=== PATIENT | female | born 1945 | race Caucasian/White ===

== ENCOUNTER 2019-09-15 08:18 | Inpatient (IN) ==
[2019-09-14 14:41] LABS: Basophils # (auto) 0.03 K/uL (0-0.2); Basophils % (auto) 0.4 %; Eosinophils # (auto) 0.07 K/uL (0-0.5); Eosinophils % (auto) 0.9 %; Hematocrit (blood only) 39.2 % (37-47); Hemoglobin 12.9 g/dL (12.0-16.0); Immature Granulocytes # (auto) 0.01 K/uL (0.00-0.02); Immature Granulocytes % (auto) 0.1 %; Mean Corpuscular Hemoglobin 30.5 pg (25-34); Mean Corpuscular Hgb Conc 32.9 g/dL (32-36); Mean Corpuscular Volume 92.7 fL (80-100); Monocytes # (auto) 0.64 K/uL (0.11-0.59); Monocytes % (auto) 8.7 %; Neutrophils # (auto) 4.94 K/uL (1.4-6.5); Neutrophils % (auto) 66.9 %; Platelet Count 225 K/uL (130-400); RDW Coefficient of Variation 14.9 % (11.5-14.5); RDW Standard Deviation 50.7 fL (36.4-46.3); Red Blood Count 4.23 M/uL (4.2-5.4); White Blood Count 7.39 K/uL (4.8-10.8)
[2019-09-14 14:42] LABS: BUN Creatinine Ratio 11.2 (10-20); Blood Urea Nitrogen 14 mg/dl (7-18); Carbon Dioxide 30 mmol/L (21-32); Chloride 104 mmol/L (98-107); Est GFR (African American) 51.4; Est GFR (Non-African American) 44.4; Glucose 112 mg/dl (70-99); Potassium 4.1 mmol/L (3.5-5.1); Sodium 137 mmol/L (136-145)
--- NOTE | 2019-09-14 14:58 | Anesthesiology Consultation ---
Date of Service September 14, 2019 Assessment & Plan (1) Encounter for pre-operative examination: Chart Review Chart Review: Acceptable Risk for Surgery (pending review of confirmed EKG by anesthesia DOS) and Patient NOT seen in Pre Admission Testing EKG pending confirmed report. Check BSG AM DOS Pt with history of a fib- med list only has ASA listed re: AC. Patient with active C. diff- surgeon aware Pulm note 08/20/19= F/u on COPD, history of lung cancer, and new RLL lung nodule. RLL nodule has PET activity is thus concerning for lung cancer. Referred for CT guided needle biopsy- biopsy shows some atypical cells but no definite malignancy. Possibility of sampling error is high and given PET positivity in nodule in active smoker with previous lung cancer history, pulm remains concerned about malignancy. Referred to thoracic surgery fo consideration of limited resection based on lung function. History Surgery Operation Date: 09/15/19 10:30 Proposed Procedures p Navigational Bronchoscopy with Fiducial Markers - Gennaro Tsai MD, FACS s Video Assisted Thoracoscopy with Right Lower Lobe Wedge Resection, Possible Right Lower Lobectomy with Mediastinal Lymphadenectomy - Gennaro Tsai MD, FACS Height/Weight Height: 5 ft 1 in Weight: 57.606 kg Allergies Allergy/AdvReac Type Severity Reaction Status Date / Time buspirone [From BuSpar] Allergy Redness of Verified 09/11/19 11:18 Skin tramadol [From Ultram] Allergy Diarrhea Verified 09/11/19 11:18 atorvastatin [From Lipitor] AdvReac Unknown Verified 09/11/19 11:18 Medications Home Medications Medication Instructions Recorded Confirmed Last Taken albuterol sulfate 90 mcg/actuation 2 puffs INH Q6H PRN 09/09/19 09/11/19 Unknown aerosol inhaler ascorbate calcium (vitamin C) 500 500 mg PO PM 09/09/19 09/11/19 Unknown mg tablet aspirin 81 mg chewable tablet 81 mg PO QAM 09/09/19 09/11/19 Unknown carvedilol 6.25 mg tablet 6.25 mg PO BID 09/09/19 09/11/19 Unknown cranberry 500 mg capsule 500 mg PO BID 09/09/19 09/11/19 Unknown cyclobenzaprine 10 mg tablet 10 mg PO HS 09/09/19 09/11/19 Unknown donepezil 10 mg tablet 10 mg PO QAM 09/09/19 09/11/19 Unknown ferrous sulfate 325 mg (65 mg 325 mg PO PM 09/09/19 09/11/19 Unknown iron) tablet fluticasone furoate 100 1 puffs INH DAILY PRN 09/09/19 09/11/19 Unknown mcg-vilanterol 25 mcg/dose inhalation powder gabapentin 600 mg tablet 600 mg PO TID 09/09/19 09/11/19 Unknown hydrochlorothiazide 12.5 mg tablet 12.5 mg PO QAM 09/09/19 09/11/19 Unknown ipratropium 0.5 mg-albuterol 3 mg 3 ml INH Q6H PRN 09/09/19 09/11/19 Unknown (2.5 mg base)/3 mL nebulization soln lactobacillus combination no.9 4 4,000 mmu cells PO BID 09/09/19 09/11/19 Unknown billion cell capsule lisinopril 5 mg tablet 5 mg PO BID 09/09/19 09/11/19 Unknown melatonin 5 mg capsule 10 mg PO HS cap 09/09/19 09/11/19 Unknown metformin 500 mg tablet 500 mg PO BID 09/09/19 09/11/19 Unknown mirtazapine 15 mg tablet 15 mg PO PM 09/09/19 09/11/19 Unknown nitroglycerin 0.4 mg sublingual 0.4 mg SL Q5M PRN 09/09/19 09/11/19 Unknown tablet ondansetron 4 mg disintegrating 4 mg PO BID 09/09/19 09/11/19 Unknown tablet pantoprazole 40 mg tablet,delayed 40 mg PO QAM 09/09/19 09/11/19 Unknown release rosuvastatin 10 mg tablet 10 mg PO PM 09/09/19 09/11/19 Unknown sucralfate 1 gram tablet 1 gm PO BID 09/09/19 09/11/19 Unknown vitamin B complex 1 tab PO QAM 09/09/19 09/11/19 Unknown fidaxomicin [Dificid] 200 mg PO Q12H 09/11/19 09/11/19 Unknown Past Medical History Medical History Anemia Asthma rare res. inh use Atrial fibrillation DX APR 2019 > [facility] > NO CARDIOVERSIONS/PACER> CONTROLLED WITH MEDS Barretts esophagus CAD (coronary artery disease) Cervical cancer 1969 Chronic obstructive pulmonary disease can't remember last exac Clostridium difficile infection HAS CURRENTLY> PER PATIENT, GOING TO [facility] NOVEMBER 24 FOR FECAL TRANSPLANT > PER PATIENT, DR. TSAI IS AWARE Diabetes Diaphragmatic hernia ESBL E. coli carrier Esophageal dilatation GERD (gastroesophageal reflux disease) Heart attack 2006 > "HEART MADE ITS OWN BYPASS" (DR. ESPINAL) NO PROCEDURES FOR THIS Hx of sepsis X2 > 06/22/16 AND 03/13/18> [facility] Hyperlipidemia Hypertension IBS (irritable bowel syndrome) Lung cancer 2016 WITH GI[facility] REMOVAL> NO CHEMO Nodule of right lung Non-alcoholic fatty liver disease Osteoarthritis Peptic ulcer disease PVD (peripheral vascular disease) stent to LLE Scoliosis Past Family History Family History Brother Diabetes Hypertension Mother Cancer Breast cancer Past Surgical History Surgical History H/O vascular surgery 3 STENTS LEFT LEG 2002 @ [facility] 2 STENTS RIGHT LEG 2004 @ [facility] H/O: hysterectomy History of adenoidectomy History of colonoscopy History of lung surgery left upper lobe 2016 ([facility] lobectomy per records) History of tonsillectomy History of tooth extraction S/P cholecystectomy Social History Smoking Status: Current every day smoker tobacco type: cigarettes Smoking cigarettes per day: 1 PPD Do You Dip or Chew Tobacco: No Hx Alcohol Use: No Hx Substance Use: No substance use type: does not use Testing Laboratory Results Laboratory Tests 09/14/19 09/14/19 13:15 13:15 WBC 7.39 Hgb 12.9 Hct 39.2 Plt Count 225 Sodium 137 Potassium 4.1 Chloride 104 Carbon Dioxide 30 BUN 14 Creatinine 1.21 H Glucose 112 H Electrocardiogram Date: 09/14/19 Findings: + NSR @ (90) unconfirmed Chest X-Ray Date: 08/13/19 Chest x-ray frontal view= no pneumothorax is seen. Heart size and pulmonary vasculature are normal. No effusion consolidation is seen. Echocardiogram Date: 10/15/18 EF: 55 to 60% LV Function: normal Other Findings: + LVH (Mild/concentric) Valvular Disease: + no significant valvular disease Inferior and anterior wall hypokinesis. Stress Test Date: 02/19/19 Type: nuclear (Lexiscan) No significant ST segment changes during stress. No arrhythmias during stress. SPECT images demonstrate normal perfusion during stress. SPECT images demonstrate normal homogeneous tracer distribution throughout the myocardium. Left ventricular chamber dimensions are normal. Systolic function greater than 50% and calculated at 65 to 70%. Pharmacologic stress nuclear study is normal. Normal SPECT perfusion images. No significant ischemia is detected. No evidence of infarct. Recommendations: Recommend medical treatment. Other Testing Chest CT 09/14/19= Increase in size in the 1.8 x 1.4 cm cavitary spiculated nodule within the right lower lobe. This is highly suspicious for a primary bronchogenic malignancy.A few subcentimeter groundglass pulmonary nodules seen within the right upper and lower lobes remain stable. Emphysema. Prior left upper lobectomy. No pneumothorax. No pleural effusions. PFT 07/23/19= Mild obstructive ventilatory impairment. No significant response to bronchodilator. Normal total lung capacity. Moderately impaired diffusing capacity. (FEV1 pre 1.39 liters; post 1.31 liters)
[~2019-09-15 08:18] MED LIST: CEFAZOLIN 1000MG 1,000 MG/7.5 ML SYR IV SCH; LR 15ML/HR IV SCH
--- NOTE | 2019-09-15 10:25 | History & Physical Bridge Note ---
Date of Service September 15, 2019 History & Physical Bridge Note I have examined the patient, reviewed the History & Physical and in the interval since the performance of the History & Physical I have noted the following changes of clinical significance: no changes noted
[2019-09-15] MEDS ORDERED: BUPIVACAINE 0.5 % 5 MG/1 ML MPF 30ML VIAL ONE (10:34)
[2019-09-15] MEDS ORDERED: BUPIVACAINE LIPOSOME 1.3% 266 MG/20 ML VIAL ONE (10:35)
[2019-09-15] MEDS ORDERED: SODIUM CHLORIDE 0.9% PF 50 ML VIAL ONE (10:35)
[2019-09-15] MEDS ORDERED: ePHEDrine sulfate 50 MG/ML AMP IV PRN (10:36)
[2019-09-15] MEDS ORDERED: ATROPINE SULFATE 0.1 MG/ML 10ML SYR IV PRN (10:36)
[2019-09-15] MEDS ORDERED: PROMETHAZINE HCL 12.5 MG in SODIUM CHLORIDE 0.9% 50 ML IV PRN (10:36)
[2019-09-15] MEDS ORDERED: ONDANSETRON INJ 2 MG/ML 2 ML VIAL IV PRN ×2 (10:36→17:27)
[2019-09-15] MEDS ORDERED: HYDROmorphone INJ 2 MG/ML SYR/VIAL IV PRN (10:36)
[2019-09-15] MEDS ORDERED: fentaNYL citrate 100 MCG/2 ML VIAL IV PRN (10:36)
[2019-09-15] MEDS ORDERED: METOCLOPRAMIDE HCL INJ 5 MG/ML 2 ML VIAL IV PRN (10:36)
[2019-09-15] MEDS ORDERED: PROPOFOL IV EMULSION 10 MG/ML 20 ML VIAL IV ONE (10:45)
[2019-09-15] MEDS ORDERED: LIDOCAINE HCL 2% 2 ML VIAL/AMP(20MG/ML) INFIL ONE (10:45)
[2019-09-15] MEDS ORDERED: ROCURONIUM BROMIDE 10 MG/ML 5 ML VIAL ONE ×6 (10:45→12:26)
[2019-09-15] MEDS ORDERED: MIDAZOLAM HCL 1 MG/ML 2ML VIAL ONE (10:45)
[2019-09-15] MEDS ORDERED: GLYCOPYRROLATE 0.2 MG/ML VIAL ONE (10:45)
[2019-09-15] MEDS ORDERED: fentaNYL citrate 100 MCG/2 ML VIAL ONE ×3 (10:45→15:38)
[2019-09-15] MEDS ORDERED: METHYLENE BLUE 0.5% 10 ML VIAL ONE (10:49)
[2019-09-15] MEDS ORDERED: PHENYLEPHRINE 100MCG/ML 5ML SYR ONE (12:26)
[2019-09-15] MEDS ORDERED: ePHEDrine sulfate 50 MG/ML SYR ONE (12:27)
[2019-09-15] MEDS ORDERED: PHENYLEPHRINE HCL 10 MG/ML VIAL ONE (12:28)
--- NOTE | 2019-09-15 12:58 | Fluoroscopy Report ---
FL chest 1V frontal CLINICAL HISTORY: JSOE EDUARDO BRONCH COMPARISON STUDY: None FLUOROSCOPY TIME: 59 seconds NUMBER OF FLUOROSCOPIC IMAGES: 1 FINDINGS: Image intensifier support for navigational bronchoscopy IMPRESSION: Image intensifier support for navigational bronchoscopy ACT 112: Negative or not required by law. The above report was generated using voice recognition software. It may contain grammatical, syntax or spelling errors. Electronically signed by: Tristen Monk M.D. 09/15/2019 12:57 PM
[2019-09-15] MEDS ORDERED: METOCLOPRAMIDE HCL INJ 5 MG/ML 2 ML VIAL IV ONE (14:15)
--- NOTE | 2019-09-15 14:54 | XRay Report ---
XR chest 1V portable HISTORY: right lung wedge resection COMPARISON: None. FINDINGS: Right-sided chest tube terminates within the right upper lung zone. There is a tiny right a pical pneumothorax with a pleural gap of 4 mm. Trace bilateral pleural effusions. Right basilar densi ties are noted. The heart is normal in size. Scoliosis is present. Mild emphysema. IMPRESSION: Postoperative changes within the right hemithorax. There is a tiny right apical pneumothorax. The rig ht chest tube terminates in the right upper lung zone. ACT 112: Negative or not required by law. Electronically signed by: Marcial Almeida M.D. 09/15/2019 2:52 PM
[2019-09-15 15:22] LABS: HCO3 ABG 28 mmol/L (19-24)
[2019-09-15 15:26] LABS: Allen Test Pos (Pos)
[2019-09-15 15:28] LABS: Base Excess ABG -2.2 mEq/L (-9-1.8); Oxygen Saturation ABG 99.2 % (90-95); PCO2 ABG 77 mmHg (35-46); PO2 ABG 185 mmHg (80-95)
[2019-09-15 15:31] LABS: pH ABG 7.18 (7.35-7.45)
[2019-09-15] MEDS ORDERED: ACETAMINOPHEN 1000 MG/100 ML IV IV ONE ×2 (15:54→15:57)
[2019-09-15 15:57] LABS: Base Excess ABG -2.6 mEq/L (-9-1.8); HCO3 ABG 26 mmol/L (19-24); Oxygen Saturation ABG 96.6 % (90-95); PCO2 ABG 61 mmHg (35-46); PO2 ABG 99 mmHg (80-95); pH ABG 7.24 (7.35-7.45)
[2019-09-15 15:58] LABS: Allen Test Pos (Pos)
--- NOTE | 2019-09-15 16:27 | Operative Report ---
DATE OF OPERATION: 09/15/2019 PREOPERATIVE DIAGNOSIS: Hypermetabolic mass, right lower lobe. POSTOPERATIVE DIAGNOSIS: Nonsmall cell lung carcinoma, right lower lobe. PROCEDURES PERFORMED: 1. Navigational bronchoscopy with marking of lesion with fiducial marker and methylene blue. 2. Right thoracoscopy with generous wedge resection of right lower lobe mass. 3. Lymph node biopsies. SURGEON: Gennaro Tsai MD. FIREARMS INSPECTOR: KHADIJAH August (Mr. Webster was present for the entire case and closed the skin incisions at the conclusion). ANESTHESIA: General anesthesia with a double lumen intubation. INDICATION FOR PROCEDURE AND FINDINGS: Barb Selby is a 73-year-old who underwent a left upper lobectomy for nonsmall cell lung carcinoma a few years ago. The patient tolerated this well, but however, has continued smoking. She is followed by [facility] and Dr. Black Pendleton worked her up for a mass that was growing in her right lower lobe. This mass was hypermetabolic. A biopsy was inconclusive; however, certainly appeared to be malignant. The patient was worked up and her DLCO was only 44%. The mass itself was not in a good location for a segmentectomy. I had a long talk with the patient and her in the office before surgery and stated that it is possible we could offer her lobectomy; however, I was afraid to offer her a right lower lobectomy as I did not think she would tolerate it well. At rest, the patient's pulse oximetry was 85% preop that concerned me a great deal and at that point, I elected to proceed with a wedge resection. PROCEDURE DESCRIPTION: On 09/15/2019, the patient was brought to the operating room and underwent a navigational bronchoscopy. After appropriate timeout had been called and prophylactic antibiotics given, the patient had been intubated with an #8 single lumen endotracheal tube and a fiberoptic bronchoscope was placed. The patient had some clear white sputum, which was rather thick and we suctioned it out. The left upper lobe staple line looked quite good. I then registered all the airways and went down into the right lower lobe. I was able to come out to the mass and we could see that we were in the proper position with radial ultrasound. A fiducial marker was left in this area and also injected 1 mL of methylene blue dye. The bronchoscope was then removed. It should be noted we saw no endobronchial lesions down to the tertiary airways bilaterally. The patient was then intubated with a double lumen tube. She was then turned in the left lateral decubitus position and the right chest was prepped and draped in usual sterile fashion. When we went to one lung ventilation, not only the patient's airway pressure was high, but also it was difficult to keep her saturations above 90. We used very small tidal volumes and increased her respiratory rate. After another timeout had been called, a 5 mm port was placed posterior to the scapula. Upon going in, it could be seen there were really no adhesions of the lower lobe except to the upper lobe and chest wall at the superior segment. The upper lobe did have adhesions. Another 5 mm port was placed anterior and then a 12 mm port was placed just above the diaphragm at about the midline. We then used a cautery hook and a Harmonic scalpel to take down all the adhesions of the left upper lobe to the chest wall. I then the upper lobe from the lower lobe by dividing adhesions and then developed the fissure a bit more posteriorly and superiorly. With the methylene blue, we could see the mass. I can also palpate it. I was able to grasp this and I did a very generous wedge using Endo-KHALIF staplers. We had removed a large wedge. We put it in an Endobag and delivered it off the field. This was sent off for frozen section. While waiting for the frozen section, I took down the inferior pulmonary ligament, biopsied level 9, level 8 and level 7 lymph nodes. I then went above the azygos vein and dividing this, I dissected out and cleared all the way down to the trachea; however, I did not really see any lymph node tissue in level 2 and 4 area. Frozen section came back as showing a nonsmall cell lung carcinoma; however, the margins were clear. I decided at this point as her saturations are in the high 80s, I just do not think this patient is going to handle a lobectomy very well. Dr. Pendleton and I discussed this preoperatively. I performed a block by mixing a total of 266 mg of Exparel in 20 mL solution with 30 mL of 0.5% bupivacaine and 250 mL of normal saline. This solution was used to inject the 3 port sites. I then used it to perform an intercostal block from the 2nd to the 12th rib. A 24-Slovenian chest tube was placed through the anterior port, directed towards the apex and held in place with heavy silk suture. We did not have an air leak at the conclusion. Blood loss was negligible. The patient tolerated this quite well. She was awakened in the room. I attest to the content of the Intraoperative Record and any orders documented therein. Any exception s are noted below.
--- NOTE | 2019-09-15 16:33 | Anesthesiology Progress Note ---
Date of Service September 15, 2019 Anesthesia Post Procedure Vital Signs Vital Signs: Temp Pulse Pulse Resp BP BP Pulse Ox 09/15/19 16:15 87 18 80/51 L 97 09/15/19 16:05 88 18 81/51 L 96 09/15/19 15:55 94 H 18 86/61 L 95 09/15/19 15:45 90 18 83/54 L 96 09/15/19 15:35 96 H 18 120/73 96 09/15/19 15:25 36.2 C L 97 H 18 124/85 96 09/15/19 15:16 100 H 19 96 09/15/19 15:15 96 H 18 149/82 H 97 09/15/19 15:05 102 H 18 156/87 H 97 09/15/19 14:55 98 H 18 152/104 H 97 09/15/19 14:45 100 H 18 159/92 H 97 09/15/19 14:35 106 H 18 156/91 H 91 09/15/19 14:25 107 H 18 155/91 H 94 09/15/19 14:18 36.0 C L 108 H 18 152/102 H 15 L 09/15/19 09:45 36.7 C 80 20 113/67 93 Transfer of Care Handoff Completed per policy Notes Mental Status: alert / awake / arousable and participated in evaluation Patient Amnestic to Procedure: Yes Nausea / Vomiting: adequately controlled Pain: adequately controlled Airway Patency, RR, SpO2: stable & adequate BP & HR: stable & adequate Hydration State: stable & adequate Anesthetic Complications: see Notes below Notes: On arrival to PACU, patient was very somnolent and not arousable, but oxygenating well. She appeared to be underventilating. Patient was placed on BiPAP. Initial ABG showed a respiratory acidosis. After 30 minutes of BiPAP, patient became more arousable. She started to complain of chest pain. EKG showed NSR with a prolonged QT, but no evidence of ischemia. She was given a small dose of fentanyl and IV tylenol with improvement in her pain. Repeat ABG showed improving respiratory acidosis. Patient was given a fluid bolus for mild hypotension and then was transferred to the ICU for further management. Signout provided to the ICU team.
--- NOTE | 2019-09-15 17:08 | Critical Care Consultation ---
Date of Consultation September 15, 2019 Assessment & Plan (1) Lung cancer: Impression: 73-year-old female with history of prior left upper lobectomy for lung cancer now with new hypermetabolic mass status post wedge resection on the right. Her course has been complicated by hypercarbic respiratory failure currently being treated with noninvasive positive pressure ventilation. Recommendations: 1. Hypercarbic respiratory failure: We will continue noninvasive positive pressure ventilation. Aggressive bronchodilators will be administered to treat any potential airflow obstruction. As the patient mental status improves we should be able to wean her off of BiPAP. Her baseline preoperative serum chemistry did show a CO2 level of 30 which raises the possibility of chronic hypercarbic respiratory failure, however her current pH appears to correlate appropriately for an acute increase in PCO2. We will continue to follow. 2. Status post wedge resection for lung cancer: Management per thoracic surgery. Continue chest tube for now. 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 3. COPD: Her preoperative PFTs were actually fairly well-preserved. We will place her on an aggressive bronchodilator regimen. No indication for steroids or antibiotics currently. 4. Patient's remaining critical care issues have been well addressed by the thoracic surgical service. We will continue to follow while in the ICU. (2) COPD (chronic obstructive pulmonary disease): (3) Hypercapnic respiratory failure: History of Present Illness Attending Physician: Gennaro Torres MD, [facility] History of Present Illness Asked to see patient by Dr. Torres for post operative respiratory failure. History obtained from surgical team and review of the medical record. Patient is a 73-year-old female with a history of lung cancer. She had previously undergone a left upper lobectomy but the dates are not entirely certain from this. She was undergoing surveillance by her transfer car operator in [place] when a new pulmonary nodules identified on the right. A CT FNA was attempted which demonstrated suspicious cells. A PET scan was also performed which showed moderate uptake. Due to the high pretest probability for malignancy the patient was referred for consideration of resection. She was taken to the OR today where she underwent fluorescent marking via navigational bronchoscopy followed by a wedge resection of the right lower lobe with lymph node removal. Postoperatively patient was extubated and brought to the PACU but apparently had difficulty waking up. She was empirically placed on BiPAP. I was contacted to admit the patient to the ICU. I requested a blood gas be performed. This demonstrated significant hypercarbic respiratory failure with a pH of less than 7.2 and a PCO2 of over 75. She had been on BiPAP apparently when this blood gas was drawn. I immediately presented to the PACU and adjusted her BiPAP settings to increase her inspiratory pressure. The patient was improving at that time and was able to answer some questions. Auscultation did reveal some expiratory wheezing. Postoperative chest x-ray demonstrated small apical pneumothorax but no other acute abnormality Allergies Allergy/AdvReac Type Severity Reaction Status Date / Time buspirone [From BuSpar] Allergy Redness of Verified 09/15/19 09:04 Skin tramadol [From Ultram] Allergy Diarrhea Verified 09/15/19 09:04 atorvastatin [From Lipitor] AdvReac Unknown Verified 09/15/19 09:04 Home Medications Home Medications Medication Instructions Recorded Confirmed Type albuterol sulfate 90 mcg/actuation 2 puffs INH Q6H PRN 09/09/19 09/15/19 History aerosol inhaler ascorbate calcium (vitamin C) 500 500 mg PO PM 09/09/19 09/15/19 History mg tablet aspirin 81 mg chewable tablet 81 mg PO QAM 09/09/19 09/15/19 History carvedilol 6.25 mg tablet 6.25 mg PO BID 09/09/19 09/15/19 History cranberry 500 mg capsule 500 mg PO DAILY 09/09/19 09/15/19 History cyclobenzaprine 10 mg tablet 10 mg PO HS 09/09/19 09/15/19 History donepezil 10 mg tablet 10 mg PO QAM 09/09/19 09/15/19 History ferrous sulfate 325 mg (65 mg 325 mg PO PM 09/09/19 09/15/19 History iron) tablet fluticasone furoate 100 1 puffs INH DAILY PRN 09/09/19 09/15/19 History mcg-vilanterol 25 mcg/dose inhalation powder gabapentin 600 mg tablet 600 mg PO TID 09/09/19 09/15/19 History hydrochlorothiazide 12.5 mg tablet 12.5 mg PO QAM 09/09/19 09/15/19 History ipratropium 0.5 mg-albuterol 3 mg 3 ml INH Q6H PRN 09/09/19 09/15/19 History (2.5 mg base)/3 mL nebulization soln lactobacillus combination no.9 4 4,000 mmu cells PO BID 09/09/19 09/15/19 History billion cell capsule lisinopril 5 mg tablet 5 mg PO BID 09/09/19 09/15/19 History melatonin 5 mg capsule 10 mg PO HS cap 09/09/19 09/15/19 History metformin 500 mg tablet 500 mg PO BID 09/09/19 09/15/19 History mirtazapine 15 mg tablet 15 mg PO PM 09/09/19 09/15/19 History nitroglycerin 0.4 mg sublingual 0.4 mg SL Q5M PRN 09/09/19 09/15/19 History tablet ondansetron 4 mg disintegrating 4 mg PO BID 09/09/19 09/15/19 History tablet pantoprazole 40 mg tablet,delayed 40 mg PO QAM 09/09/19 09/15/19 History release rosuvastatin 10 mg tablet 10 mg PO PM 09/09/19 09/15/19 History sucralfate 1 gram tablet 1 gm PO BID 09/09/19 09/15/19 History vitamin B complex 1 tab PO QAM 09/09/19 09/15/19 History fidaxomicin [Dificid] 200 mg PO Q12H 09/11/19 09/15/19 History Patient History Medical History Anemia Asthma rare res. inh use Atrial fibrillation DX APR 2019 > [facility] > NO CARDIOVERSIONS/PACER> CONTROLLED WITH MEDS Barretts esophagus CAD (coronary artery disease) Cervical cancer 1969 Chronic obstructive pulmonary disease can't remember last exac Clostridium difficile infection HAS CURRENTLY> PER PATIENT, GOING TO [place] NOVEMBER 24 FOR FECAL TRANSPLANT > PER PATIENT, DR. TORRES IS AWARE Diabetes Diaphragmatic hernia ESBL E. coli carrier Esophageal dilatation GERD (gastroesophageal reflux disease) Heart attack 2006 > "HEART MADE ITS OWN BYPASS" (DR. ESPINAL) NO PROCEDURES FOR THIS Hx of sepsis X2 > 06/22/16 AND 03/13/18> [facility] Hyperlipidemia Hypertension IBS (irritable bowel syndrome) Lung cancer 2016 WITH GIOVANA REMOVAL> NO CHEMO Nodule of right lung Non-alcoholic fatty liver disease Osteoarthritis Peptic ulcer disease PVD (peripheral vascular disease) stent to LLE Scoliosis Surgical History H/O vascular surgery 3 STENTS LEFT LEG 2002 @ [facility] 2 STENTS RIGHT LEG 2004 @ [facility] H/O: hysterectomy History of adenoidectomy History of colonoscopy History of lung surgery left upper lobe 2016 (GIOVANA lobectomy per records) History of tonsillectomy History of tooth extraction S/P cholecystectomy Family History Brother Diabetes Hypertension Mother Cancer Breast cancer Social History (Updated 09/10/19 @ 15:28 by Komal Roche RN) Preferred Language: Citizen Of [place] Communication Ability: Effective Morning News Anchor Required: No Beliefs That Will Affect Care: None marital status: Legally Current Living Situation: Family current occupational status: retired Other Information That Helps Us Care for You: No Feels Safe at Home: Yes Safety Concerns: Feels Safe At This Time Smoking Status: Current every day smoker Tobacco Type: cigarettes ; packs per day: 1 ; Cigarettes Per Day: 1 PPD ; Do You Dip or Chew Tobacco: No ; Second Hand Exposure: Yes ; Tobacco Cessation Education Requested by Patient: No Hx Alcohol Use: No Hx Substance Use: No Review of Systems Review of Systems: Unobtainable due to reduced consciousness Physical Exam Constitutional: well developed Sleepy but arousable. Full face bipap on place. Neck: trachea midline, no thyromegaly Respiratory: Auscultation: + wheezes Cardiovascular: RRR, no murmur, no edema Gastrointestinal (Abdomen): normal bowel sounds, soft, nontender, no hepatosplenomegaly Musculoskeletal: Extremities: extremities normal to inspection Skin: no rashes, warm and dry Neurologic: Nonfocal exam Lymphatic: no cervical lymphadenopathy Results & Data ([facility]) Vital Signs (Past 12 Hours) Vital Signs Temp Pulse Pulse Resp BP BP Pulse Ox 09/15/19 15:35 96 H 18 120/73 96 09/15/19 15:25 36.2 C L 97 H 18 124/85 96 09/15/19 15:16 100 H 19 96 09/15/19 15:15 96 H 18 149/82 H 97 09/15/19 15:05 102 H 18 156/87 H 97 09/15/19 14:55 98 H 18 152/104 H 97 09/15/19 14:45 100 H 18 159/92 H 97 09/15/19 14:35 106 H 18 156/91 H 91 09/15/19 14:25 107 H 18 155/91 H 94 09/15/19 14:18 36.0 C L 108 H 18 152/102 H 15 L 09/15/19 09:45 36.7 C 80 20 113/67 93 Laboratory Results 09/14/19 13:15 09/14/19 13:15 Diagnostic Findings CXR and Ct independently reviewed as well as PET scan. Postoperative chest x-ray demonstrated mild hypoventilatory changes but no acute airspace opacity. Small right apical pneumothorax. Chest tube in position. Some volume loss on the right side. CT of the chest from June 17, 2018 was independently reviewed. It demonstrated significant centrilobular emphysematous changes with prior left upper lobectomy. There is a noncalcified subpleural nodule present on the right. PET scan from June 2019 also independently reviewed. It demonstrates mild to moderate PET uptake of the noncalcified pulmonary nodule on the right. Coding Level of Care Code Critical Care 1st 30-74 mins Diagnoses Lung cancer C34.90 COPD (chronic obstructive pulmonary disease) J44.9 Hypercapnic respiratory failure J96.92 Time Spent (min) 45
[2019-09-15] MEDS ORDERED: ALBUTEROL HFA 8 GM INHALER INH PRN (17:27)
[2019-09-15] MEDS ORDERED: MoRPHine SULFATE 2 MG/ML CARP IV PRN (17:27)
[2019-09-15] MEDS ORDERED: FLUTICASONE/VILANTEROL 100/25MCG 14 PUFFS/INHALER INH PRN (17:27)
[2019-09-15] MEDS ORDERED: NITROGLYCERIN SL 0.4 MG/TAB TAB SL PRN (17:27)
[2019-09-15] MEDS ORDERED: ALBUT/IPRATROP 3MG/0.5MG NEB 3 ML VIAL INH PRN (17:27)
[2019-09-15] MEDS ORDERED: METOCLOPRAMIDE HCL INJ 5 MG/ML 2 ML VIAL ONE (17:35)
[2019-09-15] MEDS: SODIUM CHLORIDE 0.9% 1000ML 1,000 ML IV SCH ×2 (17:43→18:27)
[2019-09-15] MEDS: ACETAMINOPHEN 1,000 MG/100 ML VIAL IV SCH ×2 (17:43→22:25)
[2019-09-15] MEDS: INSULIN ASPART 100 UNITS/ML 3 ML PEN SC SCH ×2 (17:44→21:23)
[2019-09-15] MEDS: METOCLOPRAMIDE HCL INJ 5 MG/ML 2 ML VIAL IV SCH (18:26)
[2019-09-15] MEDS: GABAPENTIN 600 MG TAB PO SCH ×2 (18:27→21:05)
[2019-09-15] MEDS: FIDAXOMICIN 200 MG TAB PO SCH (18:33)
[2019-09-15] MEDS ORDERED: ALBUT/IPRATROP 3MG/0.5MG NEB 3 ML VIAL NEB SCH (19:00)
[2019-09-15] MEDS: ALBUT/IPRATROP 3MG/0.5MG NEB 3 ML VIAL NEB SCH (19:06)
[2019-09-15] MEDS ORDERED: [UNRECOGNIZED DRUG - OTHER] PO SCH (21:00)
[2019-09-15] MEDS: ROSUVASTATIN CALCIUM 10 MG TAB PO SCH (21:06)
[2019-09-15] MEDS: MIRTAZAPINE TAB 15 MG TAB PO SCH (21:06)
[2019-09-15] MEDS: CYCLOBENZAPRINE HCL 10 MG TAB PO SCH (21:06)
[2019-09-15] MEDS: SUCRALFATE 1 GM TAB PO SCH (21:07)
[2019-09-15] MEDS: lisinopriL 5 MG TAB PO SCH (21:25)
[2019-09-15] MEDS: carvediloL 6.25 MG TAB PO SCH (21:25)
--- NOTE | 2019-09-15 22:18 | Electrocardiogram Report ---
Test Reason : Blood Pressure : / mmHG Vent. Rate : 093 BPM Atrial Rate : 093 BPM P-R Int : 190 ms QRS Dur : 094 ms QT Int : 414 ms P-R-T Axes : 084 091 072 degrees QTc Int : 514 ms Normal sinus rhythm Rightward axis Prolonged QT Abnormal ECG When compared with ECG of 14-SEP-2019 13:30, QT has lengthened Confirmed by Felipe Torres ([id number]) on 09/15/2019 10:18:50 PM Referred By: Gennaro Tsai Confirmed By:Felipe Torres
[2019-09-16] MEDS: METOCLOPRAMIDE HCL INJ 5 MG/ML 2 ML VIAL IV SCH ×2 (02:18→11:13)
[2019-09-16] MEDS: OXYCODONE HCL IR 5 MG TAB (IMMEDIATE RELEASE) PO PRN ×3 (04:34→22:33)
[2019-09-16 04:53] LABS: Basophils # (auto) 0.02 K/uL (0-0.2); Basophils % (auto) 0.2 %; Eosinophils # (auto) 0.14 K/uL (0-0.5); Eosinophils % (auto) 1.5 %; Hematocrit (blood only) 34.6 % (37-47); Hemoglobin 11.2 g/dL (12.0-16.0); Immature Granulocytes # (auto) 0.01 K/uL (0.00-0.02); Immature Granulocytes % (auto) 0.1 %; Lymphocytes # (auto) 1.08 K/uL (1.2-3.4); Lymphocytes % (auto) 11.2 %; Mean Corpuscular Hemoglobin 30.3 pg (25-34); Mean Corpuscular Hgb Conc 32.4 g/dL (32-36); Mean Corpuscular Volume 93.5 fL (80-100); Mean Platelet Volume 12.1 fL (7.4-10.4); Monocytes # (auto) 0.62 K/uL (0.11-0.59); Monocytes % (auto) 6.4 %; Neutrophils # (auto) 7.75 K/uL (1.4-6.5); Neutrophils % (auto) 80.6 %; Platelet Count 213 K/uL (130-400); RDW Coefficient of Variation 14.8 % (11.5-14.5); RDW Standard Deviation 50.3 fL (36.4-46.3); White Blood Count 9.62 K/uL (4.8-10.8)
[2019-09-16 05:09] LABS: BUN Creatinine Ratio 11.2 (10-20); Creatinine Clr Calc Pharmacy 30.3 ml/min; Est GFR (Non-African American) 38.9; Magnesium 1.7 mg/dl (1.8-2.4); Phosphorus 3.7 mg/dl (2.5-4.9); Potassium 3.5 mmol/L (3.5-5.1)
[2019-09-16] MEDS: ACETAMINOPHEN 1,000 MG/100 ML VIAL IV SCH (05:33)
[2019-09-16] MEDS: FIDAXOMICIN 200 MG TAB PO SCH ×2 (05:49→18:52)
[2019-09-16] MEDS: MAGNESIUM SULFATE / D5W 1 GM/100 ML BAG IV SCH ×2 (06:53→08:19)
[2019-09-16] MEDS: ALBUT/IPRATROP 3MG/0.5MG NEB 3 ML VIAL NEB SCH (07:23)
--- NOTE | 2019-09-16 07:23 | XRay Report ---
XR chest 1V portable HISTORY: Postop. Right wedge resection. COMPARISON: Chest 09/15/2019. FINDINGS: Right-sided chest tube terminates within the medial aspect of the right midlung zone. Proba ble tiny right apical pneumothorax remaining. Trace right pleural effusion. Right basilar densities h ave improved. The heart is normal in size. Emphysema is again noted. Mild fascial thickening within t he right lung may represent asymmetric congestive change. IMPRESSION: Right-sided chest tube remains in place. Probable tiny right apical pneumothorax remaining. ACT 112: Negative or not required by law. Electronically signed by: Marcial Almeida M.D. 09/16/2019 7:21 AM
--- NOTE | 2019-09-16 07:38 | Critical Care Progress Note ---
Date of Service September 16, 2019 Assessment & Plan (1) Lung cancer: Impression: 73-year-old female with history of prior left upper lobectomy for lung cancer now with new hypermetabolic mass status post wedge resection on the right. Patient transferred to the ICU for hypercarbic respiratory failure requiring BiPAP which is now been weaned off Recommendations: 1. Hypercarbic respiratory failure: Appears resolved now. 2. Status post wedge resection for lung cancer: Management per thoracic surgery. Continue chest tube for now. 3. COPD: Her preoperative PFTs were actually fairly well-preserved. Discontinue scheduled duo nebs and place her on Anoro with as needed duo nebs. Will need to be assessed for oxygen prior to discharge. 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 Patient is stable to transfer out of the intensive care unit. Will sign off when she leaves the ICU. Feel free to contact us if we can be of additional assistance. (2) COPD (chronic obstructive pulmonary disease): (3) Hypercapnic respiratory failure: Subjective Patient seen and examined. EMR reviewed. Discussed with DARRICK for overnight john nts as well as with thoracic surgical team. The patient is done well post surgery. She has been weaned off BiPAP. She is currently awake and sitting up at the bedside eating breakfast. She offers no complaints. Her wheezing is resolved. She states she is prescribed inhalers at home but is not using them on a regular basis. She continues to require oxygen although this has been weaned significantly. Review of Systems Review of Systems: All systems reviewed & are unremarkable except as noted in HPI & below Physical Exam Constitutional: well developed Neck: trachea midline, no thyromegaly Respiratory: normal respiratory effort, lungs clear to auscultation Auscu ltation: no wheezes Cardiovascular: RRR, no murmur, no edema Gastrointestinal (Abdomen): normal bowel sounds, soft, nontender, no hepatosplenomegaly Musculoskeletal: Extremities: extremities normal to inspection Skin: no rashes, warm and dry Lymphatic: no cervical lymphadenopathy Results & Data ([facility]) Vital Signs (Past 12 Hours) Vital Signs Temp Pulse Pulse Resp BP Pulse Ox 09/16/19 07:23 96 H 18 94 09/16/19 06:11 99 H 22 105/48 L 96 09/16/19 06:00 86 15 95 09/16/19 05:10 81 16 105/51 L 95 09/16/19 05:00 84 25 H 95 09/16/19 04:26 84 27 H 122/71 92 09/16/19 04:00 36.6 C 83 14 93 09/16/19 03:10 85 13 88/48 L 91 09/16/19 03:00 84 16 92 09/16/19 02:11 89 14 92 09/16/19 02:10 83 12 92/49 L 93 09/16/19 02:00 82 14 97 09/16/19 01:11 85 15 96 09/16/19 01:10 83 15 94/49 L 96 09/16/19 01:00 81 14 97 09/16/19 00:11 79 15 97 09/16/19 00:10 76 14 89/48 L 97 09/16/19 00:00 36.6 C 80 14 96 09/15/19 23:10 67 14 92/56 L 98 09/15/19 23:00 78 16 97 09/15/19 22:10 81 14 99/61 L 100 09/15/19 22:00 76 13 100 09/15/19 21:50 78 12 100 09/15/19 21:40 76 13 100 09/15/19 21:30 80 13 100 09/15/19 21:20 78 19 96 09/15/19 21:11 78 15 99 09/15/19 21:10 81 13 95/54 L 99 09/15/19 21:00 80 13 98 09/15/19 20:10 78 15 91/53 L 99 09/15/19 20:00 36.4 C L 80 16 98 09/15/19 19:38 87 21 85/52 L 94 Laboratory Results 09/16/19 04:23 09/16/19 04:23 Diagnostic Findings Chest x-ray independently reviewed. There is slight deviation of the trachea to the right although the film is somewhat MARRERO rotated. Blunting of the right costophrenic angle is noted. Chest tubes in position. There may be a small apical pneumothorax although this is not well appreciated on this film. Mild coarsening of the bronchovascular markings throughout. Coding Level of Care Code 21255 Subseq Hosp Care Lvl 2 Diagnoses Lung cancer C34.90 COPD (chronic obstructive pulmonary disease) J44.9 Hypercapnic respiratory failure J96.92
--- NOTE | 2019-09-16 07:59 | XRay Report ---
XR chest 1V portable CLINICAL HISTORY: tube removal tube position COMPARISON STUDY: 09/16/2019 FINDINGS: Interval removal of the right-sided chest tube. No postprocedural pneumothorax. All additio nal findings remain stable IMPRESSION: . No significant pneumothorax post right-sided chest tube removal. ACT 112: Negative or not required by law. The above report was generated using voice recognition software. It may contain grammatical, syntax or spelling errors. Electronically signed by: Tristen Monk M.D. 09/16/2019 7:58 AM
[2019-09-16] MEDS: INSULIN ASPART 100 UNITS/ML 3 ML PEN SC SCH ×4 (08:19→22:07)
[2019-09-16] MEDS: ASPIRIN 81 MG ECTAB PO SCH (08:21)
[2019-09-16] MEDS: DONEPEZIL HCL 10 MG TAB PO SCH (08:21)
[2019-09-16] MEDS: SUCRALFATE 1 GM TAB PO SCH ×2 (08:21→21:32)
[2019-09-16] MEDS: carvediloL 6.25 MG TAB PO SCH ×2 (08:21→21:33)
[2019-09-16] MEDS: ENOXAPARIN INJ 40 MG/0.4 ML SYR SQ SCH (08:21)
[2019-09-16] MEDS: GABAPENTIN 600 MG TAB PO SCH ×3 (08:22→21:34)
[2019-09-16] MEDS: PANTOprazole 40 MG TAB PO SCH (08:22)
[2019-09-16] MEDS: NICOTINE 14 MG/24 HR PATCH TD SCH (08:22)
[2019-09-16] MEDS: lisinopriL 5 MG TAB PO SCH ×2 (08:23→21:31)
[2019-09-16] MEDS: ACETAMINOPHEN 325 MG TAB PO SCH ×3 (11:12→21:33)
[2019-09-16] MEDS: CYCLOBENZAPRINE HCL 10 MG TAB PO SCH (21:32)
[2019-09-16] MEDS: ROSUVASTATIN CALCIUM 10 MG TAB PO SCH (21:32)
[2019-09-16] MEDS: MIRTAZAPINE TAB 15 MG TAB PO SCH (21:33)
[2019-09-17] MEDS: FIDAXOMICIN 200 MG TAB PO SCH (04:32)
[2019-09-17] MEDS: ACETAMINOPHEN 325 MG TAB PO SCH ×2 (04:32→10:28)
[2019-09-17] MEDS: OXYCODONE HCL IR 5 MG TAB (IMMEDIATE RELEASE) PO PRN ×2 (04:33→12:54)
--- NOTE | 2019-09-17 05:16 | Progress Note ---
DATE: 09/16/2019 The patient was seen 1 day after we did a wedge resection for a nonsmall cell lung carcinoma. She was very slow to wake up from anesthesia; however, she did very well in the ICU. She was down to 1 or 2 liters. She had no air leak, drained very little. We pulled her chest tube. She has been ambulating in the hallway. She is still on some oxygen. She is still a bit tenuous and lives very far away from the hospital. I am going to keep her for at least another day. She and her understand. We had a long discussion how the port ambulation is. They understand. We will see her tomorrow and see how things go and I may let her go tomorrow.
--- NOTE | 2019-09-17 08:21 | XRay Report ---
XR chest 1V portable CLINICAL HISTORY: hypoxia dyspnea COMPARISON STUDY: 09/16/2019 FINDINGS: Moderate increase in cardiac size. Postoperative suture line medial aspect right base. Increased prominence of pulmonary vasculature. Moderate increase in cardiac size. IMPRESSION: Developing and are slightly progressive components of congestive heart failure. ACT 112: Negative or not required by law. The above report was generated using voice recognition software. It may contain grammatical, syntax or spelling errors. Electronically signed by: Tristen Monk M.D. 09/17/2019 8:19 AM
[2019-09-17] MEDS: DONEPEZIL HCL 10 MG TAB PO SCH (08:46)
[2019-09-17] MEDS: SUCRALFATE 1 GM TAB PO SCH (08:46)
[2019-09-17] MEDS: GABAPENTIN 600 MG TAB PO SCH ×2 (08:47→13:00)
[2019-09-17] MEDS: ASPIRIN 81 MG ECTAB PO SCH (08:47)
[2019-09-17] MEDS: carvediloL 6.25 MG TAB PO SCH (08:47)
[2019-09-17] MEDS: lisinopriL 5 MG TAB PO SCH (08:48)
[2019-09-17] MEDS: PANTOprazole 40 MG TAB PO SCH (08:48)
[2019-09-17] MEDS: NICOTINE 14 MG/24 HR PATCH TD SCH (08:48)
[2019-09-17] MEDS: ENOXAPARIN INJ 40 MG/0.4 ML SYR SQ SCH (08:49)
[2019-09-17] MEDS: INSULIN ASPART 100 UNITS/ML 3 ML PEN SC SCH ×2 (08:53→12:56)
--- NOTE | 2019-09-17 09:32 | Discharge Summary ---
DISCHARGE DIAGNOSES: 1. Nonsmall cell lung carcinoma, right lower lobe.. 2. Status post left upper lobectomy. 3. Postoperative hypoxemia. HOSPITAL COURSE: This is a very nice 73-year-old female who has had a left upper lobectomy via thoracotomy down in [place] a few years ago. Dr. Black Pendleton from [facility] follows her and she was found to have a hypermetabolic mass in the right lower lobe. Biopsy was done which was inconclusive. After a long discussion, we elected to proceed with a resection. I explained to the patient that she was on the fence about whether she would tolerate a lobectomy. On 09/15/2019, I brought the patient to the operating room. She did not do as well on one lung ventilation as I had hoped. We placed a fiducial marker and injected methylene blue. We were able to see the mass. We did a generous wedge resection and our margins were negative. This is a nonsmall cell lung carcinoma. We also did a lymph node dissection. She tolerated it well. I was concerned as the patient's pulse ox on room air was 85% preop while she was resting. When she took deep breaths and was active the saturations increased, but her DLCO was only 44%. I elected to proceed with a wedge resection. The patient did not wake up while from anesthesia and was watched in the ICU overnight. Over the course of the night, she woke up very nicely. However, the day following surgery, even though we were able to get her tube out, we could not get her off the oxygen and she was still a bit confused. The patient lives a considerable distance from the hospital and I was concerned about discharging her home. For this reason, we kept her for another night and ambulated her great deal. She still could not get off the oxygen. We discharged her home on oxygen and her x-ray the day of discharge looked quite good from a thoracic surgery standpoint. She had no pneumothorax and had no pleural effusions, 1 day after we pulled the chest tube. Dressings were dry. I gave discharge instructions and I will see her back in a week to go over her final pathology report. Frozen section of the margins showed that we had clean resection margin. We will see her back in the office next week. LISANDRO
== END 2019-09-17 13:48 | disposition home or self-care (01) | DRG 163 ==
LOC: ASU 08:18 → 1E 13:53 → 3E 09-16 09:28